=== PATIENT | female | born 1980 | race Hispanic/Latino ===

== ENCOUNTER 2017-10-20 20:35 | Emergency (ER) | payer OTHER ==
[2017-10-20] MEDS ORDERED: ONDANSETRON HCL 4 MG/2 ML VIAL ONE (20:40)
[2017-10-20] MEDS ORDERED: MORPHINE SULFATE 2 MG/ML 1ML SYG ONE (20:41)
[2017-10-20 21:06] LABS: BASOPHILS % (AUTO) 0.7 % (0.0-5.0); EOSINOPHILS % (AUTO) 1.3 % (0.0-8.0); HEMATOCRIT 38.7 % (36-48); LYMPHOCYTES % (AUTO) 30.6 % (21.0-51.0); MEAN CORPUSCULAR HEMOGLOBIN 30.2 pg (27.0-33.0); MEAN CORPUSCULAR HGB CONC 33.8 g/dL (32.0-36.0); MEAN CORPUSCULAR VOLUME 89.3 fL (79-99); MONOCYTES % (AUTO) 7.3 % (3.0-13.0); NEUTROPHILS % (AUTO) 60.1 % (40.0-77.0); PLATELET COUNT (AUTO) 466 K/uL (130-400); RED BLOOD CELL COUNT(AUTO) 4.33 MIL/uL (4.00-5.50); RED CELL DISTRIBUTION WIDTH 13.9 % (11.0-15.5); WHITE BLOOD COUNT (AUTO) 14.2 K/uL (4.8-10.8)
[2017-10-20 21:19] LABS: APPEARANCE,URINE Clear (CLEAR); BILIRUBIN,URINE Negative (NEGATIVE); COLOR,URINE Yellow (YELLOW); GLUCOSE, URINE (UA) Negative (NEGATIVE); KETONES,URINE Negative (NEGATIVE); LEUKOCYTE ESTERASE ,URINE Trace (NEGATIVE); NITRATE,URINE Negative (NEGATIVE); OCCULT BLOOD,URINE Negative (NEGATIVE); PH,URINE 5.5 (5.0-8.0); PROTEIN,URINE Negative (NEGATIVE)
[2017-10-20 21:21] LABS: ALBUMIN 3.6 g/dL (3.5-5.0); BILIRUBIN,TOTAL 0.5 mg/dL (0.2-1.0); CREATININE 0.9 mg/dL (0.5-1.5); POTASSIUM 3.6 mmol/L (3.5-5.1); TOTAL PROTEIN, SERUM 8.1 g/dL (6.0-8.3)
[2017-10-20 21:42] LABS: HCG,QUAL RESULT NEGATIVE (NEGATIVE)
[2017-10-20 21:48] LABS: RBC,URINE 0-1 /HPF (0-1)
[2017-10-20 21:49] LABS: BACTERIA,URINE Rare /HPF (None Seen); MUCUS,URINE Rare LPF (None Seen); SQUAMOUS EPITHELIAL CELL,UR Few /LPF (0-2)
[2017-10-20] MEDS ORDERED: MORPHINE SULFATE 4 MG/1ML SYG ONE (22:45)
[2017-10-20] MEDS ORDERED: IOPAMIDOL-370 75 ML VIAL IV ONE (22:51)
[2017-10-20] MEDS ORDERED: KETOROLAC TROMETHAMINE 15MG/ML ONE (23:43)
== END 2017-10-21 01:49 | disposition home or self-care (01) ==
LOC: EDH 20:35
DX: N13.2 Hydronephrosis with renal and ureteral calculous obstruction (principal); Z98.51 Tubal ligation status
CPT/HCPCS: 36415; 74176; 74177; 80053; 81001; 81025; 85025; 96374 ×2; 96375; 99285; J1885; J2270; J2405; Q9967